=== PATIENT | female | born 1990 | race Caucasian/White ===

== ENCOUNTER 2017-03-11 20:46 | Emergency (ER) | payer MEDICAID ==
[2017-03-11 20:57] VITALS: TEMP 98.5; O2SAT 100
[2017-03-11 21:05] VITALS: BMI 36.1
--- NOTE | 2017-03-11 21:10 | ED PDOC ---
Arrival/HPI - General Chief Complaint: Abdominal Pain Time Seen by Provider: 03/11/17 20:53 Historian: Patient - History of Present Illness Narrative History of Present Illness (Text): 03/11/17 21:08 Yolanda Blunt is a 26 year old female, P:2 A:2 currently 2 months, who presents to the Emergency department complaining of epigastric pain since eating macaroni salad a few hours prior. Patient also reports associated nausea and vomiting. Patient denies any vaginal discharge, vaginal bleeding, fever, chills, chest pain, shortness of breath, diarrhea, urinary symptoms, back pain, headache, dizziness, or any other complaints. Time/Duration: Other (today) Symptom Onset: Gradual Symptom Course: Unchanged Activities at Onset: Light, Eating Context: Home Past Medical History - Provider Review Nursing Documentation Reviewed: Yes - Psychiatric Hx Psychophysiologic Disorder: No Hx Substance Use: No - Surgical History Hx Section: Yes Family/Social History - Physician Review Nursing Documentation Reviewed: Yes Family/Social History: No Known Family HX Smoking Status: Never Smoked Hx Alcohol Use: No Hx Substance Use: No Allergies/Home Meds Allergies/Adverse Reactions: Allergies No Known Allergies Allergy (Verified 03/11/17 20:49) Home Medications: Home Meds Medication Instructions Recorded Confirmed Multivit/Folic Acid/I 1 tab PO DAILY 03/11/17 03/11/17 [] Review of Systems - Physician Review All systems were reviewed & negative as marked: Yes - Review of Systems Constitutional: Normal. absent: Fevers Eyes: Normal ENT: Normal Respiratory: Normal. absent: SOB, Cough Cardiovascular: Normal. absent: Chest Pain Gastrointestinal: Abdominal Pain, Nausea, Vomiting. absent: Diarrhea Genitourinary Female: Normal. absent: Dysuria, Frequency, Hematuria, Urine Output Changes, Vaginal Bleeding, Vaginal Discharge Musculoskeletal: Normal. absent: Back Pain, Neck Pain Skin: Normal. absent: Rash Neurological: Normal. absent: Headache, Dizziness Endocrine: Normal Hemo/Lymphatic: Normal Psychiatric: Normal Physical Exam Vital Signs Reviewed: Yes Vital Signs Temp Pulse Resp BP Pulse Ox 03/11/17 20:53 98.5 F 97 H 22 128/83 100 Temperature: Afebrile Blood Pressure: Normal Pulse: Regular Respiratory Rate: Normal Appearance: Positive for: Well-Appearing, Non-Toxic, Comfortable Pain Distress: None Mental Status: Positive for: Alert and Oriented X 3 - Systems Exam Head: Present: Atraumatic, Normocephalic Pupils: Present: PERRL Extroacular Muscles: Present: EOMI Conjunctiva: Present: Normal Mouth: Present: Moist Mucous Membranes Neck: Present: Normal Range of Motion Respiratory/Chest: Present: Clear to Auscultation, Good Air Exchange. No: Respiratory Distress, Accessory Muscle Use Cardiovascular: Present: Regular Rate and Rhythm, Normal S1, S2. No: Murmurs Abdomen: Present: Normal Bowel Sounds. No: Tenderness, Distention, Peritoneal Signs Back: Present: Normal Inspection Upper Extremity: Present: Normal Inspection. No: Cyanosis, Edema Lower Extremity: Present: Normal Inspection. No: Edema Neurological: Present: GCS=15, CN II-XII Intact, Speech Normal, Motor Func Grossly Intact, Normal Sensory Function Skin: Present: Warm, Dry, Normal Color. No: Rashes Psychiatric: Present: Alert, Oriented x 3, Normal Insight, Normal Concentration Medical Decision Making ED Course and Treatment: 03/11/17 21:08 Impression: 26 year old female complaining of epigastric pain, nausea, and vomiting after eating. Differential Diagnosis included but are not limited to: biliary colic vs. gastritis Plan: -- Labs, lipase -- IV fluids -- Zofran -- Pepcid -- Reassess and disposition Progress Notes: 03/11/17 21:59 Reviewed labs, WBC: 16.5. US Gallbladder and Pancreas ordered. 03/11/17 23:25 Reviewed sono, US Gallbladder and Pancreas shows: Unremarkable sonographic evaluation of the right upper quadrant, as detailed above. Limited evaluation of the pancreas, secondary to overlying bowel gas. 03/12/17 01:40 On re-evaluation, pt is completely asymptomatic during her period of stay in Emergency department. No recurrent symptoms. Will discharge pt with full dietary instructions. Pt instructed to follow-up with her PMD and to return to the Emergency department immediately if she has any recurrent symptoms. - Lab Interpretations Lab Results: 03/12/17 00:41 03/11/17 21:40 Lab Results 03/12/17 00:57: Urine Color Yellow, Urine Appearance Sl cloudy, Urine pH 7.0, Ur Specific [employer] 1.020, Urine Protein Trace H, Urine Glucose (UA) Negative, Urine Ketones Negative, Urine Blood Small H, Urine Nitrate Negative, Urine Bilirubin Negative, Urine Urobilinogen 1.0 H, Ur Leukocyte Esterase Negative, Urine RBC 1 - 3, Urine WBC 0 - 2, Ur Epithelial Cells 0 - 2, Urine Bacteria Trace, Urine HCG, Qual Positive 03/12/17 00:41: WBC 15.9 H, RBC 3.69, Hgb 11.5 L, Hct 32.2 L, MCV 87.3, MCH 31.2 , MCHC 35.7, RDW 13.2, Plt Count 212, MPV 9.2 03/11/17 21:40: WBC 16.5 H D, RBC 4.35, Hgb 13.1, Hct 38.1, MCV 87.6, MCH 30.1, MCHC 34.4, RDW 13.1, Plt Count 259, MPV 9.2 03/11/17 21:40: Sodium 136, Potassium 3.7, Chloride 99, Carbon Dioxide 24, Anion Gap 17, BUN 10, Creatinine 0.6, Est GFR ( Amer) > 60, Est GFR (Non- Af Amer) > 60, Random Glucose 92, Calcium 9.7, Total Bilirubin 0.6, AST 27, ALT 37, Alkaline Phosphatase 69, Total Protein 8.9 H, Albumin 4.5, Globulin 4.4, Albumin/Globulin Ratio 1.0 L, Lipase 179 I have reviewed the lab results: Yes - RAD Interpretation Narrative RAD Interpretations (Text): US Gallbladder and Pancreas shows: Liver: The liver is unremarkable in echogenicity and size measuring 15.3 x 9.0 x 10.9 cm. No mass. No intrahepatic bile duct dilation. Gallbladder: No acute findings. No gallstones. Common bile duct: No stones. No dilation, measuring 6 mm. Pancreas: Visualization of the pancreas is limited by overlying bowel gas. Right kidney: The right kidney is unremarkable in echogenicity and size measuring 11.1 x 4.6 x 4.3 cm. No obstructing stones. No solid mass. No hydronephrosis. The visualized portion of the abdominal aorta is non-aneurysmal, the IVC is patent. IMPRESSION: Unremarkable sonographic evaluation of the right upper quadrant, as detailed above. Limited evaluation of the pancreas, secondary to overlying bowel gas. Radiology Orders: 03/11/17 21:59 GALLBLADDER & PANCREAS [US] Stat Cloth Classer: Radiologist - Medication Orders Current Medication Orders: Discontinued Medications Famotidine (Pepcid) 20 mg IVP STAT STA Stop: 03/11/17 21:12 Last Admin: 03/11/17 21:45 Dose: 20 mg Sodium Chloride (Sodium Chloride 0.9%) 1,000 mls @ 999 mls/hr IV .Q1H1M STA Stop: 03/11/17 22:11 Last Admin: 03/11/17 21:45 Dose: 999 mls/hr Ondansetron HCl (Zofran Inj) 4 mg IVP ONCE ONE Stop: 03/11/17 21:15 Last Admin: 03/11/17 21:45 Dose: 4 mg - Christineibe Statement The provider has reviewed the documentation as recorded by the Stacy Farris Provider Attestation: All medical record entries made by the Stacy were at my direction and personally dictated by me. I have reviewed the chart and agree that the record accurately reflects my personal performance of the history, physical exam, medical decision making, and the department course for this patient. I have also personally directed, reviewed, and agree with the discharge instructions and disposition. Disposition/Present on Arrival - Present on Arrival Any Indicators Present on Arrival: No History of DVT/PE: No History of Uncontrolled Diabetes: No Urinary Catheter: No History of Decub. Ulcer: No History Surgical Site Infection Following: None - Disposition Have Diagnosis and Disposition been Completed?: Yes Diagnosis: Gastritis Disposition: HOME/ ROUTINE Disposition Time: 01:37 Patient Plan: Discharge Patient Problems: Current Active Problems Problem Status Onset Gastritis Acute Condition: STABLE Discharge Instructions (ExitCare): Gastritis (ED) Additional Instructions: Daniels diet next couple of days/follow up with your doctor this week/any recurrent symptoms return to the emergency room Referrals: Crys Little MD [Primary Care Provider] - Follow up with primary
[2017-03-11] MEDS ORDERED: Sodium Chloride 0.9% 1,000 ML IV STA (21:11)
[2017-03-11 21:57] LABS: HEMATOCRIT 38.1 % (36.0-48.0); MEAN CELL VOLUME 87.6 fL (80.0-105.0); MEAN CORPUSCULAR HEMOGLOBIN 30.1 pg (25.0-35.0); MEAN CORPUSCULAR HGB CONC 34.4 g/dl (31.0-37.0); MEAN PLATELET VOLUME 9.2 fl (7.0-11.0); RED CELL DISTRIBUTION WIDTH 13.1 % (11.5-14.5); WHITE BLOOD COUNT 16.5 10^3/ul (4.5-11.0)
[2017-03-11 22:02] LABS: ALKALINE PHOSPHATASE 69 U/L (38-133); ALT/SGPT 37 U/L (7-56); AST/SGOT 27 U/L (15-39); BILIRUBIN,TOTAL 0.6 mg/dL (0.2-1.3); BLOOD UREA NITROGEN 10 mg/dL (7-21); CALCIUM 9.7 mg/dL (8.4-10.5); CARBON DIOXIDE 24 mmol/L (21-33); CHLORIDE 99 mmol/L (98-107); GFR AFRICAN-AMERICAN > 60; GLUCOSE,RANDOM 92 mg/dL (70-110); LIPASE 179 U/L (23-300); POTASSIUM 3.7 mmol/L (3.6-5.0); SODIUM 136 mmol/L (132-148); TOTAL PROTEIN 8.9 g/dL (5.8-8.3)
--- NOTE | 2017-03-11 23:21 | US ---
EXAM: US Abdomen Limited, Right Upper Quadrant CLINICAL HISTORY: 26 years old, female; Pain; Abdominal pain; Generalized TECHNIQUE: Real-time ultrasound of the right upper quadrant with image documentation. COMPARISON: CT - ABD PELVIS PO CONTRAST ONLY 09/25/2015 10:36:58 AM FINDINGS: Liver: The liver is unremarkable in echogenicity and size measuring 15.3 x 9.0 x 10.9 cm. No mass. No intrahepatic bile duct dilation. Gallbladder: No acute findings. No gallstones. Common bile duct: No stones. No dilation, measuring 6 mm. Pancreas: Visualization of the pancreas is limited by overlying bowel gas. Right kidney: The right kidney is unremarkable in echogenicity and size measuring 11.1 x 4.6 x 4.3 cm. No obstructing stones. No solid mass. No hydronephrosis. The visualized portion of the abdominal aorta is non-aneurysmal, the IVC is patent. IMPRESSION: Unremarkable sonographic evaluation of the right upper quadrant, as detailed above. Limited evaluation of the pancreas, secondary to overlying bowel gas.
[2017-03-12 01:04] LABS: HEMATOCRIT 32.2 % (36.0-48.0); MEAN CELL VOLUME 87.3 fL (80.0-105.0); MEAN CORPUSCULAR HEMOGLOBIN 31.2 pg (25.0-35.0); MEAN CORPUSCULAR HGB CONC 35.7 g/dl (31.0-37.0); MEAN PLATELET VOLUME 9.2 fl (7.0-11.0); RED CELL DISTRIBUTION WIDTH 13.2 % (11.5-14.5); WHITE BLOOD COUNT 15.9 10^3/ul (4.5-11.0)
[2017-03-12 01:11] LABS: URINE BILIRUBIN NEGATIVE (NEGATIVE); URINE BLOOD SMALL (NEGATIVE); URINE GLUCOSE (UA) NEGATIVE (NEGATIVE); URINE KETONE NEGATIVE (NEGATIVE); URINE LEUKOCYTE ESTERASE NEGATIVE Leu/uL (NEGATIVE); URINE PROTEIN TRACE mg/dL (<30 mg/dL)
[2017-03-12 01:12] LABS: URINE APPEARANCE SL CLOUDY (CLEAR); URINE COLOR YELLOW (YELLOW)
[2017-03-12 01:16] LABS: URINE EPITHELIAL CELLS 0 - 2 /hpf (0-5); URINE WBC 0 - 2 /hpf (0-6)
[2017-03-12 01:17] LABS: URINE BACTERIA TRACE (NEG)
[2017-03-12 02:16] VITALS: BP 109/51; PULSE 70; RESP 20
== END 2017-03-12 02:00 | disposition home or self-care (01) ==
LOC: ED 20:46
DX: O26.891 Other specified pregnancy related conditions, first trimester (principal); K29.70 Gastritis, unspecified, without bleeding; Z3A.08 8 weeks gestation of pregnancy
CPT/HCPCS: 76705; 80053; 81001; 83690; 84703; 85027; 96374; 96375; 99283; J2405; J7040